=== PATIENT | female | born 1935 | race Caucasian/White ===

== ENCOUNTER 2022-08-03 09:41 | Outpatient (CLI) | payer MEDICARE, SELFPAY ==
[2022-08-03 15:34] LABS: Influenza A by IFA negative (Negative); Influenza B by IFA negative (Negative)
== END 2022-08-03 09:42 | disposition home or self-care (01) ==
PROVIDERS: Visit Provider Family Medicine
DX: Z01.89 Encounter for other specified special examinations (principal)
CPT/HCPCS: 87804